=== PATIENT | female | born 1930 | race Caucasian/White ===

== ENCOUNTER 2021-03-02 12:30 | Emergency (ER) | payer MEDICARE ==
[2021-03-02] MEDS ORDERED: Morphine 4 MG/ML Syringe IVPUSH PRN (13:02)
[2021-03-02] MEDS ORDERED: Aspirin 81 MG Tab.Chew PO ONE (13:02)
--- NOTE | 2021-03-02 13:07 | EDM.PDOC ---
<OfficerToby - Last Filed: 03/02/21 17:04> ED HPI GENERAL MEDICAL PROBLEM - General Chief Complaint: Cardiovascular Problem Stated Complaint: SYMPTOMS OF HEARTATTACK Time Seen by Provider: 03/02/21 12:55 Source of Information: Reports: Patient, Family, RN Notes Reviewed History Limitations: Reports: No Limitations - History of Present Illness INITIAL COMMENTS - FREE TEXT/NARRATIVE: 89-year-old female presents emergency department day complaint of chest pressure, she states it started early this morning about 5 hours prior did have some diaphoresis felt a little short of breath was not nauseated. Does have a known history of coronary artery disease with a CABG 13 years ago does have atrial fibrillation and a pacemaker in place she is anticoagulated. Recently moved here from the [place] Chest Pain Score (Numeric/FACES): 3 - Related Data Allergies Allergy/AdvReac Type Severity Reaction Status Date / Time No Known Allergies Allergy Verified 03/02/21 12:47 Home Meds: Home Meds Furosemide 60 mg PO DAILY 03/02/21 [History] Gabapentin [Neurontin] 100 mg PO DAILY 03/02/21 [History] Levothyroxine 75 mcg PO ACBREAKFAST 03/02/21 [History] Metoprolol Succinate 50 mg PO DAILY 03/02/21 [History] Nitroglycerin 0.4 mg SL ASDIRECTED 03/02/21 [History] Potassium Chloride 20 meq PO DAILY 03/02/21 [History] Rosuvastatin Calcium 40 mg PO BEDTIME 03/02/21 [History] Warfarin [Coumadin] 1.5 mg PO DAILY 03/02/21 [History] Warfarin [Coumadin] 2 mg PO DAILY 03/02/21 [History] allopurinoL [Zyloprim] 100 mg PO DAILY 03/02/21 [History] amLODIPine Besylate [Amlodipine Besylate] 10 mg PO DAILY 03/02/21 [History] Past Medical History HEENT History: Reports: Impaired Vision Cardiovascular History: Reports: Afib, CAD, High Cholesterol, Hypertension, [place], Other (See Below) Other Cardiovascular History: chf Genitourinary History: Reports: Other (See Below) Other Genitourinary History: kidney disease 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: Musculoskeletal History: Reports: Fibromyalgia Endocrine/Metabolic History: Reports: Diabetes, Type II, Hypothyroidism Hematologic History: Reports: Anticoagulation Therapy Oncologic (Cancer) History: Reports: Other (See Below) Other Oncologic History: skin cancer spots - Infectious Disease History Infectious Disease History: Reports: Chicken Pox, Measles, Mumps - Past Surgical History Cardiovascular Surgical History: Reports: Carotid Endarterectomy, Coronary Artery Stent GI Surgical History: Reports: Appendectomy Social & Family History - Tobacco Use Tobacco Use Status *Q: Never Tobacco User - Caffeine Use Caffeine Use: Reports: Coffee ED ROS GENERAL - Review of Systems Review Of Systems: See Below Constitutional: Reports: Diaphoresis HEENT: Reports: No Symptoms Respiratory: Reports: Shortness of Breath. Denies: Cough, Sputum Cardiovascular: Reports: Chest Pain GI/Abdominal: Reports: No Symptoms : Reports: No Symptoms Musculoskeletal: Reports: No Symptoms ED EXAM, GENERAL - Physical Exam Exam: See Below Exam Limited By: No Limitations General Appearance: Alert, WD/WN, No Apparent Distress Respiratory/Chest: No Respiratory Distress, Lungs Clear, Normal Breath Sounds, No Accessory Muscle Use, Chest Non-Tender Cardiovascular: No Murmur, Irregularly Irregular GI/Abdominal: Soft, Non-Tender Extremities: No Pedal Edema Course - Re-Assessments/Exams Free Text/Narrative Re-Assessment/Exam: 03/02/21 14:09 Unfortunately due to the current pandemic no beds available contacted [facility] 1343 full at this time [facility] 1345 also full at this time 1350 also full at this time I did call and discussed case with Dr. Victor planning associate on-call [facility] recommended the following treatments no Brilinta at this time hold the warfarin start heparin with bolus and drip when INR falls below 2 nitro for pain continue to monitor troponins 03/02/21 17:04 Called [facility] also on diversion at 1704 Departure - Departure Disposition: Home, Self-Care 01 Clinical Impression: Non-STEMI (non-ST elevated myocardial infarction) Instructions: Heart Attack, [id number] Referrals: Jenna Allen PA-C [Primary Care Provider] - Forms: ED Department Discharge Care Plan Goals: Continue your current medications along with 1 small low-dose 81 mg aspirin daily starting tomorrow morning. You should be hearing from cardiology in the next 24 to 48 hours to discuss a recheck appointment in [place] this week. You can always return to the emergency room if you feel you are worsening such as persistent worsening chest pain or shortness of breath. Sepsis Event Note (ED) - Evaluation Sepsis Screening Result: No Definite Risk <Rico Durant - Last Filed: 03/03/21 17:50> Course - Re-Assessments/Exams Free Text/Narrative Re-Assessment/Exam: 03/03/21 17:50 No chest pain at any time during this shift. Still trying to place her. <Clif Patricia - Last Filed: 03/03/21 22:18> Course - Vital Signs Last Recorded V/S: Last Vital Signs Temp 97.1 F 03/02/21 12:34 Pulse 59 L 03/03/21 19:46 Resp 13 03/03/21 19:46 BP 143/47 H 03/03/21 19:46 Pulse Ox 94 L 03/03/21 19:46 - Orders/Labs/Meds Orders: Active Orders 24 hr Category Date Time Status Chest 1V Frontal [CR] Stat Exams 03/03/21 18:02 Taken Labs: Laboratory Tests 03/02/21 03/02/21 03/02/21 Range/Units 12:40 12:40 12:40 WBC 7.4 (4.5-11.0) K/uL RBC 4.07 (3.30-5.50) M/uL Hgb 14.4 (12.0-15.0) g/dL Hct 41.2 (36.0-48.0) % MCV 101 H (80-98) fL MCH 35 H (27-31) pg MCHC 35 (32-36) % Plt Count 150 (150-400) K/uL Neut % (Auto) 61.5 (36-66) % Lymph % (Auto) 25.1 (24-44) % [place] % (Auto) 11.0 H (2-6) % Eos % (Auto) 1.5 L (2-4) % Baso % (Auto) 0.9 (0-1) % PT 26.1 H (9.5-12.0) sec INR 2.44 H (0.80-1.20) Sodium 138 L (140-148) mmol/L Potassium 3.2 L (3.6-5.2) mmol/L Chloride 99 L (100-108) mmol/L Carbon Dioxide 25 (21-32) mmol/L Anion Gap 17.2 H (5.0-14.0) mmol/L BUN 17 (7-18) mg/dL Creatinine 1.6 H (0.6-1.0) mg/dL Est Cr Clr Drug Dosing 18.34 mL/min Estimated GFR (MDRD) 30 L (>60) Glucose 158 H (74-106) mg/dL Calcium 9.1 (8.5-10.1) mg/dL Total Bilirubin 1.1 H (0.2-1.0) mg/dL AST 44 H (15-37) U/L ALT 26 (12-78) U/L Alkaline Phosphatase 74 (46-116) U/L Troponin I 0.214 H* (0.000-0.056) ng/mL Total Protein 7.1 (6.4-8.2) g/dL Albumin 2.7 L (3.4-5.0) g/dL Globulin 4.4 H (2.3-3.5) g/dL Albumin/Globulin Ratio 0.6 L (1.2-2.2) SARS CoV-2 RNA Rapid SAVANA 03/02/21 03/02/21 03/02/21 Range/Units 14:58 18:40 18:40 WBC (4.5-11.0) K/uL RBC (3.30-5.50) M/uL Hgb (12.0-15.0) g/dL Hct (36.0-48.0) % MCV (80-98) fL MCH (27-31) pg MCHC (32-36) % Plt Count (150-400) K/uL Neut % (Auto) (36-66) % Lymph % (Auto) (24-44) % [place] % (Auto) (2-6) % Eos % (Auto) (2-4) % Baso % (Auto) (0-1) % PT 25.5 H (9.5-12.0) sec INR 2.38 H (0.80-1.20) Sodium (140-148) mmol/L Potassium (3.6-5.2) mmol/L Chloride (100-108) mmol/L Carbon Dioxide (21-32) mmol/L Anion Gap (5.0-14.0) mmol/L BUN (7-18) mg/dL Creatinine (0.6-1.0) mg/dL Est Cr Clr Drug Dosing mL/min Estimated GFR (MDRD) (>60) Glucose (74-106) mg/dL Calcium (8.5-10.1) mg/dL Total Bilirubin (0.2-1.0) mg/dL AST (15-37) U/L ALT (12-78) U/L Alkaline Phosphatase (46-116) U/L Troponin I 4.386 H* (0.000-0.056) ng/mL Total Protein (6.4-8.2) g/dL Albumin (3.4-5.0) g/dL Globulin (2.3-3.5) g/dL Albumin/Globulin Ratio (1.2-2.2) SARS CoV-2 RNA Rapid SAVANA Negative 03/03/21 03/03/21 Range/Units 18:10 18:10 WBC (4.5-11.0) K/uL RBC (3.30-5.50) M/uL Hgb (12.0-15.0) g/dL Hct (36.0-48.0) % MCV (80-98) fL MCH (27-31) pg MCHC (32-36) % Plt Count (150-400) K/uL Neut % (Auto) (36-66) % Lymph % (Auto) (24-44) % [place] % (Auto) (2-6) % Eos % (Auto) (2-4) % Baso % (Auto) (0-1) % PT 22.9 H (9.5-12.0) sec INR 2.13 H (0.80-1.20) Sodium (140-148) mmol/L Potassium (3.6-5.2) mmol/L Chloride (100-108) mmol/L Carbon Dioxide (21-32) mmol/L Anion Gap (5.0-14.0) mmol/L BUN (7-18) mg/dL Creatinine (0.6-1.0) mg/dL Est Cr Clr Drug Dosing mL/min Estimated GFR (MDRD) (>60) Glucose (74-106) mg/dL Calcium (8.5-10.1) mg/dL Total Bilirubin (0.2-1.0) mg/dL AST (15-37) U/L ALT (12-78) U/L Alkaline Phosphatase (46-116) U/L Troponin I 1.934 H* (0.000-0.056) ng/mL Total Protein (6.4-8.2) g/dL Albumin (3.4-5.0) g/dL Globulin (2.3-3.5) g/dL Albumin/Globulin Ratio (1.2-2.2) SARS CoV-2 RNA Rapid SAVANA Meds: Medications Discontinued Medications Generic Name Dose Route Start Last Admin Trade Name Freq PRN Reason Stop Dose Admin Amlodipine Besylate 10 mg 03/03/21 08:17 03/03/21 08:29 Amlodipine 5 Mg Tab PO 03/03/21 08:18 10 mg ONETIME ONE Administration Aspirin 324 mg 03/02/21 13:02 03/02/21 13:11 Aspirin 81 Mg Tab.Chew PO 03/02/21 13:03 324 mg ONETIME ONE Administration Aspirin 81 mg 03/03/21 08:17 03/03/21 08:30 Aspirin 81 Mg Tab.Chew PO 03/03/21 08:18 81 mg ONETIME ONE Administration Aspirin 81 mg 03/03/21 19:57 03/03/21 20:08 Aspirin 81 Mg Tab.Chew PO 03/03/21 19:58 81 mg ONETIME ONE Administration Furosemide 60 mg 03/03/21 08:15 03/03/21 08:32 Furosemide 20 Mg Tab PO 03/03/21 08:16 60 mg ONETIME ONE Administration Nitroglycerin/Dextrose 25 mg in 250 mls @ 3 mls/hr 03/02/21 14:15 03/03/21 19:15 Nitroglycerin 25 Mg/D5w 250 Ml IV 5 mcg/min TITRATE MOY 3 mls/hr Titration Protocol 5 MCG/MIN Levothyroxine Sodium 75 mcg 03/03/21 08:16 03/03/21 08:31 Levothyroxine 25 Mcg Tab PO 03/03/21 08:17 75 mcg ONETIME ONE Administration Lidocaine HCl 5 ml 03/03/21 21:11 03/03/21 21:46 Lidocaine 1% 5 Ml Sdv INJECT 03/03/21 21:12 Not Given ONETIME ONE Metoprolol Succinate 50 mg 03/03/21 08:16 03/03/21 08:31 Metoprolol Succinate 50 Mg Tab.Er PO 03/03/21 08:17 50 mg ONETIME ONE Administration Morphine Sulfate 4 mg 03/02/21 13:02 Morphine 4 Mg/Ml Syringe IVPUSH 03/03/21 13:03 Q10M PRN Chest Pain Potassium Chloride 40 meq 03/03/21 08:15 03/03/21 08:30 Potassium Chloride 20 Meq Tab.Er PO 03/03/21 08:16 40 meq ONETIME ONE Administration Warfarin Sodium 2 mg 03/03/21 08:16 03/03/21 08:30 Warfarin 1 Mg Tab PO 03/03/21 08:17 2 mg ONETIME ONE Administration - Re-Assessments/Exams Free Text/Narrative Re-Assessment/Exam: 03/02/21 23:38 At around 11 PM, the patient started to complain of some twinges of chest discomfort and shortness of breath. These are similar to what she has been having over the past several days to weeks. I called [facility] in [place], this time they were unable to take her even if they went straight to [facility] because there were no ICU beds and had to just completely say they were on diversion and cannot take anyone. I offered the patient to call [facility], but she was feeling better and wanted to wait to see what Ramiro Herrmann said in the morning. We did turn up her nitroglycerin 5 mics per minute. I offered her something else for pain and she declined. Free Text/Narrative Re-Assessment/Exam: 03/03/21 18:16 Return from his 7 PM shift and this patient is still here. Apparently she is on some "waiting list" with several hospitals. She has remained mostly asymptomatic today. I am going to check a 1 view chest x-ray, repeat her troponin and INR to follow progress. 03/03/21 22:16 1 view chest x-ray looks stable, her repeat troponin is actually down to 1.9, and INR is 2.1. IV nitroglycerin was stopped and she remained asymptomatic. I had a long discussion with the family and with her planning associate, he agreed that outpatient follow-up would be adequate with her doing so well and with her troponin only going to 4 and coming down. She was given 81 mg of aspirin, and was encouraged to continue 1 dose daily and her planning associate will call her tomorrow. As the patient was being discharged, she became very anxious and needed some Ativan to calm down, she was given ten 1 mg doses to split and take 0.5 up to twice daily for the next few days. Departure - Departure Time of Disposition: 22:01 Sepsis Event Note (ED) - Focused Exam Vital Signs: Vital Signs Pulse Resp BP Pulse Ox 03/03/21 19:46 59 L 13 143/47 H 94 L 03/03/21 18:27 57 L 14 127/79 94 L 03/03/21 17:14 56 L 10 L 126/48 L 91 L 03/03/21 17:12 70 14 126/68 93 L 03/03/21 15:56 59 L 15 139/51 L 90 L 03/03/21 13:59 61 14 127/47 L 93 L 03/03/21 12:59 60 20 130/42 L 90 L 03/03/21 11:29 62 15 121/34 L 92 L 03/03/21 10:30 62 14 127/58 L 93 L - My Orders Last 24 Hours: My Active Orders 03/03/21 18:02 Chest 1V Frontal [CR] Stat - Assessment/Plan Last 24 Hours: My Active Orders 03/03/21 18:02 Chest 1V Frontal [CR] Stat
--- NOTE | 2021-03-02 13:51 | CR ---
CHEST: Portable 03/02/2021 at 1:24 PM CLINICAL HISTORY:Chest pain COMPARISON:2007 FINDINGS: Patient has had previous sternotomy. There is a permanent cardiac pacer. Heart is mildly enlarged. Pulmonary vascularity is normal. No infiltrates are seen. There are atherosclerotic changes in the aorta. Impression: Mild cardiomegaly No acute cardiac pulmonary process
[2021-03-02] MEDS ORDERED: Nitroglycerin/D5W 25 MG/250 ML BOTTLE IV SCH (14:15)
[2021-03-03] MEDS ORDERED: Furosemide 20 MG Tab PO ONE (08:15)
[2021-03-03] MEDS ORDERED: Potassium Chloride 20 MEQ Tab.ER PO ONE (08:15)
[2021-03-03] MEDS ORDERED: Metoprolol Succinate 50 MG Tab.ER PO ONE (08:16)
[2021-03-03] MEDS ORDERED: Levothyroxine 25 MCG Tab PO ONE (08:16)
[2021-03-03] MEDS ORDERED: amLODIPine 5 MG Tab PO ONE (08:17)
[2021-03-03] MEDS ORDERED: Aspirin 81 MG Tab.Chew PO ONE ×2 (08:17→19:57)
--- NOTE | 2021-03-04 08:54 | CR ---
CHEST: Portable 03/03/2021 at 6:26 PM CLINICAL HISTORY:VT COMPARISON:03/02/2021 FINDINGS: Heart is mildly enlarged pulmonary vascularity is mildly cephalized. There is some patchy infiltrate in the right infrahilar region. There is density in the left infrahilar region which is similar to prior study may be scarring or atelectasis. IMPRESSION: Mild vascular cephalization may represent some pulmonary venous hypertension Patchy right lower lobe infiltrate Scarring and fibrosis in the left infrahilar region
== END 2021-03-03 22:05 | disposition home or self-care (01) ==
LOC: JP.ED 12:30
DX: I21.4 Non-ST elevation (NSTEMI) myocardial infarction (principal); I48.91 Unspecified atrial fibrillation; I11.0 Hypertensive heart disease with heart failure; I50.9 Heart failure, unspecified; I25.10 Atherosclerotic heart disease of native coronary artery without angina pectoris; I25.2 Old myocardial infarction; E78.00 Pure hypercholesterolemia, unspecified; E11.9 Type 2 diabetes mellitus without complications; E03.9 Hypothyroidism, unspecified; Z79.01 Long term (current) use of anticoagulants; Z79.899 Other long term (current) drug therapy; Z20.822 Contact with and (suspected) exposure to COVID-19
CPT/HCPCS: 36415; 71045; 80053; 84484; 85025; 85610; 93005; 96365; 96366; 99285; A9270; J3490; U0002

== ENCOUNTER 2021-03-04 17:56 | Emergency (ER) | payer MEDICARE ==
[2021-03-04] MEDS ORDERED: Furosemide 40 MG/4 ML VIAL IVPUSH ONE (18:01)
--- NOTE | 2021-03-04 18:03 | EDM.PDOC ---
ED HPI GENERAL MEDICAL PROBLEM - General Stated Complaint: MEDICAL VIA [facility] Time Seen by Provider: 03/04/21 18:02 Source of Information: Reports: Patient, EMS History Limitations: Reports: Physical Impairment, Respiratory Distress - History of Present Illness INITIAL COMMENTS - FREE TEXT/NARRATIVE: 89-year-old female who was discharged from the hospital yesterday after spending 48 hours in the emergency room waiting for placement to treat and work-up an MN. A chest x-ray done prior to discharge yesterday evening did not show significant congestive failure and her troponin had been falling so she was set up to see her utility porter as an outpatient in the next few days. She was encouraged to restart her diuretics and other medications. Unfortunately she became more short of breath after getting home, and did not take any of her regular medications. Her family checked on her this afternoon and she was short of breath so they called the ambulance, when EMS arrived she was using accessory muscles, O2 saturations in the upper 70s to low 80s and having difficulty speaking words in full sentences. Nonrebreather oxygen was applied and she was brought in urgently. Her EKG still shows ventricular paced rhythm. Pulse is 65, O2 sats are better now with the oxygen at 93%. She has been having chest pain all day, sublingual nitroglycerin given by EMS helped somewhat. Onset: Gradual Duration: Hour(s): (Shortness of breath is worsened over the past 24 hours) Location: Reports: Chest (Chest pressure is more persistent) Associated Symptoms: Reports: Chest Pain, Malaise, Shortness of Breath, Weakness, Other (Patient is very weak). Denies: Cough, Fever/Chills, Headaches, Nausea/Vomiting Middle Back Pain Score (Numeric/FACES): 6 - Related Data Allergies Allergy/AdvReac Type Severity Reaction Status Date / Time No Known Allergies Allergy Verified 03/02/21 12:47 Home Meds: Home Meds Furosemide 60 mg PO DAILY 03/02/21 [History] Gabapentin [Neurontin] 100 mg PO DAILY 03/02/21 [History] Levothyroxine 75 mcg PO ACBREAKFAST 03/02/21 [History] Metoprolol Succinate 50 mg PO DAILY 03/02/21 [History] Nitroglycerin 0.4 mg SL ASDIRECTED 03/02/21 [History] Potassium Chloride 20 meq PO DAILY 03/02/21 [History] Rosuvastatin Calcium 40 mg PO BEDTIME 03/02/21 [History] Warfarin [Coumadin] 1.5 mg PO DAILY 03/02/21 [History] Warfarin [Coumadin] 2 mg PO DAILY 03/02/21 [History] allopurinoL [Zyloprim] 100 mg PO DAILY 03/02/21 [History] amLODIPine Besylate [Amlodipine Besylate] 10 mg PO DAILY 03/02/21 [History] Past Medical History HEENT History: Reports: Impaired Vision Cardiovascular History: Reports: Afib, CAD, High Cholesterol, Hypertension, [place], Other (See Below) Other Cardiovascular History: chf Genitourinary History: Reports: Other (See Below) Other Genitourinary History: kidney disease [employer]ER History: Reports: Musculoskeletal History: Reports: Fibromyalgia Endocrine/Metabolic History: Reports: Diabetes, Type II, Hypothyroidism Hematologic History: Reports: Anticoagulation Therapy Oncologic (Cancer) History: Reports: Other (See Below) Other Oncologic History: skin cancer spots - Infectious Disease History Infectious Disease History: Reports: Chicken Pox, Measles, Mumps - Past Surgical History Cardiovascular Surgical History: Reports: Carotid Endarterectomy, Coronary Artery Stent GI Surgical History: Reports: Appendectomy Social & Family History - Caffeine Use Caffeine Use: Reports: Coffee ED ROS GENERAL - Review of Systems Review Of Systems: See Below Constitutional: Reports: Malaise, Decreased Appetite. Denies: Fever, Chills HEENT: Denies: Vision Change Respiratory: Reports: Shortness of Breath, Cough. Denies: Sputum Cardiovascular: Reports: Chest Pain. Denies: Edema, Palpitations GI/Abdominal: Denies: Abdominal Pain, Nausea, Vomiting Skin: Reports: Pallor Neurological: Reports: Weakness Psychiatric: Reports: No Symptoms ED EXAM, GENERAL - Physical Exam Exam: See Below Exam Limited By: Respiratory Distress General Appearance: Alert, Moderate Distress Eye Exam: Bilateral Eye: Normal Inspection Throat/Mouth: Normal Inspection Head: Atraumatic Neck: Supple Respiratory/Chest: Other (Diffuse expiratory wheezes are heard bilaterally with some decreased breath sounds in the bases but no rales or rhonchi) Cardiovascular: Regular Rate, Rhythm GI/Abdominal: Soft, Non-Tender Extremities: No: Pedal Edema Neurological: Alert, Oriented, Other (No asymmetric weakness) Psychiatric: Flat Affect Skin Exam: Warm, Dry #1 Interpretation EKG Date: 03/04/21 EKG Interpretation Comments: Ventricular paced rhythm at a rate of 65, similar to previous EKGs Course - Vital Signs Last Recorded V/S: Last Vital Signs Temp 95.8 F L 03/04/21 18:24 Pulse 59 L 03/04/21 20:24 Resp 25 H 03/04/21 20:24 BP 159/73 H 03/04/21 20:24 Pulse Ox 93 L 03/04/21 20:24 - Orders/Labs/Meds Orders: Active Orders 24 hr Category Date Time Status Chavira Catheter Insertion [Insert Urinary Catheter] [OM. Care 03/04/21 18:30 Ordered PC] Q24H Chest 1V Frontal [CR] Stat Exams 03/04/21 18:01 Taken EKG 12 Lead [EK] Routine Ther 03/04/21 18:00 Ordered Labs: Laboratory Tests 03/04/21 03/04/21 03/04/21 Range/Units 18:10 18:13 18:13 WBC 11.6 H (4.5-11.0) K/uL RBC 3.82 (3.30-5.50) M/uL Hgb 13.6 (12.0-15.0) g/dL Hct 39.6 (36.0-48.0) % MCV 104 H (80-98) fL MCH 36 H (27-31) pg MCHC 34 (32-36) % Plt Count 133 L (150-400) K/uL Neut % (Auto) 72.4 H (36-66) % Lymph % (Auto) 17.8 L (24-44) % [place] % (Auto) 9.1 H (2-6) % Eos % (Auto) 0.1 L (2-4) % Baso % (Auto) 0.6 (0-1) % PT 23.3 H (9.5-12.0) sec INR 2.17 H (0.80-1.20) Sodium 134 L (140-148) mmol/L Potassium 3.8 (3.6-5.2) mmol/L Chloride 98 L (100-108) mmol/L Carbon Dioxide 20 L (21-32) mmol/L Anion Gap 19.8 H (5.0-14.0) mmol/L BUN 20 H (7-18) mg/dL Creatinine 1.8 H (0.6-1.0) mg/dL Est Cr Clr Drug Dosing 18.65 mL/min Estimated GFR (MDRD) 27 L (>60) Glucose 271 H (74-106) mg/dL Calcium 9.3 (8.5-10.1) mg/dL Total Bilirubin 2.4 H D (0.2-1.0) mg/dL AST 40 H (15-37) U/L ALT 27 (12-78) U/L Alkaline Phosphatase 68 (46-116) U/L Troponin I 0.613 H* (0.000-0.056) ng/mL Total Protein 6.8 (6.4-8.2) g/dL Albumin 2.6 L (3.4-5.0) g/dL Globulin 4.2 H (2.3-3.5) g/dL Albumin/Globulin Ratio 0.6 L (1.2-2.2) SARS CoV-2 RNA Rapid SAVANA 03/04/21 Range/Units 18:40 WBC (4.5-11.0) K/uL RBC (3.30-5.50) M/uL Hgb (12.0-15.0) g/dL Hct (36.0-48.0) % MCV (80-98) fL MCH (27-31) pg MCHC (32-36) % Plt Count (150-400) K/uL Neut % (Auto) (36-66) % Lymph % (Auto) (24-44) % [place] % (Auto) (2-6) % Eos % (Auto) (2-4) % Baso % (Auto) (0-1) % PT (9.5-12.0) sec INR (0.80-1.20) Sodium (140-148) mmol/L Potassium (3.6-5.2) mmol/L Chloride (100-108) mmol/L Carbon Dioxide (21-32) mmol/L Anion Gap (5.0-14.0) mmol/L BUN (7-18) mg/dL Creatinine (0.6-1.0) mg/dL Est Cr Clr Drug Dosing mL/min Estimated GFR (MDRD) (>60) Glucose (74-106) mg/dL Calcium (8.5-10.1) mg/dL Total Bilirubin (0.2-1.0) mg/dL AST (15-37) U/L ALT (12-78) U/L Alkaline Phosphatase (46-116) U/L Troponin I (0.000-0.056) ng/mL Total Protein (6.4-8.2) g/dL Albumin (3.4-5.0) g/dL Globulin (2.3-3.5) g/dL Albumin/Globulin Ratio (1.2-2.2) SARS CoV-2 RNA Rapid SAVANA Negative Meds: Medications Discontinued Medications Generic Name Dose Route Start Last Admin Trade Name Freq PRN Reason Stop Dose Admin Albuterol/Ipratropium 3 ml 03/04/21 18:04 03/04/21 18:22 Albuterol/Ipratropium 3.0-0.5 Mg/3 Ml Neb Soln NEB 03/04/21 18:05 3 ml ONETIME ONE Administration Furosemide 40 mg 03/04/21 18:01 03/04/21 18:08 Furosemide 40 Mg/4 Ml Vial IVPUSH 03/04/21 18:02 40 mg ONETIME ONE Administration Nitroglycerin/Dextrose 25 mg in 250 mls @ 6 mls/hr 03/04/21 18:15 03/04/21 18:44 Nitroglycerin 25 Mg/D5w 250 Ml IV 20 mcg/min TITRATE MOY 12 mls/hr Titration Protocol 10 MCG/MIN Phytonadione 1 mg/ Sodium 50.5 mls @ 100 mls/hr 03/04/21 18:40 03/04/21 18:59 Chloride IV 03/04/21 19:10 100 mls/hr ONETIME ONE Administration - Re-Assessments/Exams Free Text/Narrative Re-Assessment/Exam: 03/04/21 18:46 Chest x-ray now shows congestive heart failure. Patient was started on sublingual nitroglycerin 10 mcg/min and will be titrated upward, also given 40 mg of IV Lasix. CBC, CMP, troponin, INR Covid test were obtained and cardiology in [place] was consulted and they are agreeable to take the patient when stable. 03/04/21 19:27 Chest x-ray now shows congestive failure, troponin is actually still falling at 0.6. Nitroglycerin was titrated up to 20 mcg/min and the patient continued to improve. [place] kindly accepted the patient for transfer. 03/04/21 19:41 Patient was also given a DuoNeb, continued to improve and is now on 94% O2 saturation with 4 L of nasal cannula. Her breathing is much less labored. BiPAP was recommended by the accepting physician in [place] but she is improving fairly rapidly and is very anxious and I do not think she will tolerate BiPAP at this time. Kidney function has worsened slightly, her creatinine is now 1.8 and GFR 27. She was given 1 mg of vitamin K when her INR returned 2.17, this was at the request of the utility porter in [place] to prepare her for study later. Departure - Departure Time of Disposition: 20:35 Disposition: DC/Tfer to [facility] 02 Clinical Impression: NSTEMI (non-ST elevated myocardial infarction) Congestive heart failure Qualifiers: Heart failure type: combined systolic and diastolic Heart failure chronicity: acute on chronic Qualified Code(s): I50.43 - Acute on chronic combined systolic (congestive) and diastolic (congestive) heart failure - Discharge Information Referrals: Jenna Allen PA-C [Primary Care Provider] - Forms: ED Department Discharge Care Plan Goals: Patient was transferred by EMS to [facility] for further cardiology evaluation and stabilization with anticipated angiogram in the next day or 2. Sepsis Event Note (ED) - Focused Exam Vital Signs: Vital Signs Temp Pulse Resp BP Pulse Ox 03/04/21 20:24 59 L 25 H 159/73 H 93 L 03/04/21 19:42 60 35 H 150/73 H 94 L 03/04/21 19:14 60 30 H 135/61 95 03/04/21 19:03 60 26 H 151/71 H 96 03/04/21 18:35 61 30 H 148/66 H 89 L 03/04/21 18:24 95.8 F L 63 17 182/73 H 95 - My Orders Last 24 Hours: My Active Orders 03/04/21 18:00 EKG 12 Lead [EK] Routine 03/04/21 18:01 Chest 1V Frontal [CR] Stat 03/04/21 18:30 Chavira Catheter Insertion [Insert Urinary Catheter] [OM.PC] Q24H - Assessment/Plan Last 24 Hours: My Active Orders 03/04/21 18:00 EKG 12 Lead [EK] Routine 03/04/21 18:01 Chest 1V Frontal [CR] Stat 03/04/21 18:30 Chavira Catheter Insertion [Insert Urinary Catheter] [OM.PC] Q24H
[2021-03-04] MEDS ORDERED: Albuterol/Ipratropium 3.0-0.5 MG/3 ML Neb Soln NEB ONE (18:04)
[2021-03-04] MEDS ORDERED: Nitroglycerin/D5W 25 MG/250 ML BOTTLE IV SCH (18:15)
[2021-03-04] MEDS ORDERED: Phytonadione 1 MG in Sodium Chloride 0.9% 50 ML IV ONE (18:40)
--- NOTE | 2021-03-05 08:56 | CR ---
CHEST: Portable 03/04/2021 at 6:31 PM CLINICAL HISTORY:SOB, chest pressure COMPARISON:03/03/2021 FINDINGS: There are increasing perihilar and lower lobe infiltrates. There is a right pleural effusion. Impression: Increasing bilateral pulmonary infiltrates. This could represent diffuse pneumonia but is most likely pulmonary edema from CHF Small right effusion.
== END 2021-03-04 20:45 ==
LOC: JP.ED 17:56
DX: I21.4 Non-ST elevation (NSTEMI) myocardial infarction (principal); I11.0 Hypertensive heart disease with heart failure; I50.43 Acute on chronic combined systolic (congestive) and diastolic (congestive) heart failure; I48.91 Unspecified atrial fibrillation; I25.10 Atherosclerotic heart disease of native coronary artery without angina pectoris; E78.00 Pure hypercholesterolemia, unspecified; I25.2 Old myocardial infarction; E11.9 Type 2 diabetes mellitus without complications; E03.9 Hypothyroidism, unspecified; Z79.01 Long term (current) use of anticoagulants; Z79.899 Other long term (current) drug therapy; Z20.822 Contact with and (suspected) exposure to COVID-19
CPT/HCPCS: 36415; 51702; 71045; 80053; 84484; 85025; 85610; 93005; 96365; 96366; 96368; 96375; 99285; J1940; J3430; J3490; U0002; J7620-GY

== ENCOUNTER 2021-06-11 10:30 | Emergency (ER) | payer MEDICARE, MEDICAID ==
--- NOTE | 2021-06-11 11:32 | CR ---
CHEST: Portable 06/11/2021 at 11:10 AM CLINICAL HISTORY:SOB COMPARISON:03/04/2021 FINDINGS: Heart is enlarged. Pulmonary vascular is normal. Patient has had previous sternotomy. There is a permanent cardiac pacer. There are atherosclerotic changes in the aorta.. There are diffuse bilateral infiltrates right greater than left. There is some interstitial prominence. No effusions are seen IMPRESSION: Diffuse bilateral infiltrate right greater than left. There is also some generalized interstitial prominence similar which may be chronic. Findings may represent pneumonitis. Pulmonary edema from CHF is not excluded
--- NOTE | 2021-06-11 11:46 | EDM.PDOC ---
ED HPI GENERAL MEDICAL PROBLEM - General Chief Complaint: Cardiovascular Problem Stated Complaint: [facility] Time Seen by Provider: 06/11/21 11:39 Source of Information: Reports: Patient, EMS History Limitations: Reports: No Limitations - History of Present Illness INITIAL COMMENTS - FREE TEXT/NARRATIVE: pt has been weak and fatiqued for the past 2-3 days, She has not had a fever. She has a history of 2 stents recently placed. She is on her third pacemaker. She is complaining odf a tender chest and some pain in the shoulder blades. her ekg is mainly paced with a left bumdle branch block.Pt did take 3 baby asa at home prior to arrival. Onset: Gradual, Other (she has not felt well for the past 2-3 days. ) Duration: Hour(s): Location: Reports: Chest, Back, Other (pt is sob. ) Associated Symptoms: Reports: Chest Pain, Shortness of Breath, Weakness - Related Data Allergies Allergy/AdvReac Type Severity Reaction Status Date / Time No Known Allergies Allergy Verified 06/11/21 11:29 Home Meds: Home Meds Furosemide 40 mg PO DAILY 03/02/21 [History] Gabapentin [Neurontin] 100 mg PO DAILY 03/02/21 [History] Levothyroxine 75 mcg PO ACBREAKFAST 03/02/21 [History] Metoprolol Succinate 50 mg PO DAILY 03/02/21 [History] Nitroglycerin 0.4 mg SL ASDIRECTED 03/02/21 [History] Rosuvastatin Calcium 40 mg PO BEDTIME 03/02/21 [History] Warfarin [Coumadin] 1.5 mg PO DAILY 03/02/21 [History] Warfarin [Coumadin] 2 mg PO DAILY 03/02/21 [History] allopurinoL [Zyloprim] 100 mg PO DAILY 03/02/21 [History] amLODIPine Besylate [Amlodipine Besylate] 10 mg PO DAILY 03/02/21 [History] Past Medical History HEENT History: Reports: Impaired Vision Cardiovascular History: Reports: Afib, CAD, High Cholesterol, Hypertension, [place], Other (See Below) Other Cardiovascular History: chf Genitourinary History: Reports: Other (See Below) Other Genitourinary History: kidney disease [employer] History: Reports: Musculoskeletal History: Reports: Fibromyalgia Endocrine/Metabolic History: Reports: Diabetes, Type II, Hypothyroidism Hematologic History: Reports: Anticoagulation Therapy Oncologic (Cancer) History: Reports: Other (See Below) Other Oncologic History: skin cancer spots - Infectious Disease History Infectious Disease History: Reports: Chicken Pox, Measles, Mumps - Past Surgical History Cardiovascular Surgical History: Reports: Carotid Endarterectomy, Coronary Artery Stent GI Surgical History: Reports: Appendectomy Social & Family History - Caffeine Use Caffeine Use: Reports: Coffee ED ROS GENERAL - Review of Systems Review Of Systems: See Below Constitutional: Reports: Weakness, Fatigue HEENT: Reports: No Symptoms Respiratory: Reports: Shortness of Breath Cardiovascular: Reports: Other ( chest tenderness She has also had some aching in her shoulder blades. She has felt mildly sob. ) Endocrine: Reports: No Symptoms GI/Abdominal: Reports: No Symptoms Musculoskeletal: Reports: No Symptoms Skin: Reports: No Symptoms Neurological: Reports: No Symptoms Psychiatric: Reports: Anxiety ED EXAM, GENERAL - Physical Exam Exam: See Below Free Text/Narrative:: pt is a pale appearing pt whos has some chest discomfort and psin by her shoulder blades. She has a long cardiac history with open heart and recent stent. She has some valvular heart problems. She has had 3 pacemakers. She has been more sob and she has had the unusual chest discomfort. Exam Limited By: No Limitations General Appearance: Alert, Anxious, Mild Distress, Other (mild sob. pupils are equal and reactive. ) Ears: Normal TMs Nose: Normal Inspection Throat/Mouth: Normal Inspection Head: Atraumatic Neck: Normal Inspection, Other ( tender to palpate over lower cervcal area. ) Respiratory/Chest: Rales, Other (pt is tender to palpate over the left chest. She did have stents down just recently) Cardiovascular: Regular Rate, Rhythm, Other ( ekg shows a paced rhythm) GI/Abdominal: Soft, Non-Tender (Female) Exam: Deferred Rectal (Female) Exam: Deferred Back Exam: Normal Inspection Extremities: Other ( very slight edema) Neurological: Alert, Oriented, Normal Cognition Psychiatric: Anxious #1 Interpretation Rhythm: A-Flutter EKG Interpretation Comments: pt has a controlled rhythm and has a left bundle. Course - Vital Signs Last Recorded V/S: Last Vital Signs Temp 36.1 C 06/11/21 16:15 Pulse 60 06/11/21 16:15 Resp 14 06/11/21 16:15 BP 96/52 L 06/11/21 16:15 Pulse Ox 91 L 06/11/21 16:15 - Orders/Labs/Meds Labs: Laboratory Tests 06/11/21 06/11/21 06/11/21 Range/Units 11:05 11:05 11:05 WBC 12.3 H (4.5-11.0) K/uL RBC 3.91 (3.30-5.50) M/uL Hgb 13.4 (12.0-15.0) g/dL Hct 39.9 (36.0-48.0) % MCV 102 H (80-98) fL MCH 34 H (27-31) pg MCHC 34 (32-36) % Plt Count 125 L (150-400) K/uL Neut % (Auto) 80.0 H (36-66) % Lymph % (Auto) 11.6 L (24-44) % [place] % (Auto) 7.9 H (2-6) % Eos % (Auto) 0.2 L (2-4) % Baso % (Auto) 0.3 (0-1) % PT (9.2-10.6) sec INR Sodium (140-148) mmol/L Potassium (3.6-5.2) mmol/L Chloride (100-108) mmol/L Carbon Dioxide (21-32) mmol/L Anion Gap (5.0-14.0) mmol/L BUN (7-18) mg/dL Creatinine (0.6-1.0) mg/dL Est Cr Clr Drug Dosing mL/min Estimated GFR (MDRD) (>60) BUN/Creatinine Ratio Glucose (74-106) mg/dL Calcium (8.5-10.1) mg/dL Total Bilirubin (0.2-1.0) mg/dL AST (15-37) U/L ALT (12-78) U/L Alkaline Phosphatase (46-116) U/L POC Troponin I 1.03 H* (0.00-0.08) NT-Pro-B Natriuret Pep 5147 H (5-450) pg/mL Total Protein (6.4-8.2) g/dL Albumin (3.4-5.0) g/dL Globulin (2.3-3.5) g/dL Albumin/Globulin Ratio (1.2-2.2) Influenza Type A RNA (NEGATIVE) RSV RNA (INAAT) (NEGATIVE) Influenza Type B RNA (NEGATIVE) SARS-CoV-2 RNA (SAVANA) (NEGATIVE) 06/11/21 06/11/21 06/11/21 Range/Units 11:47 13:05 14:09 WBC (4.5-11.0) K/uL RBC (3.30-5.50) M/uL Hgb (12.0-15.0) g/dL Hct (36.0-48.0) % MCV (80-98) fL MCH (27-31) pg MCHC (32-36) % Plt Count (150-400) K/uL Neut % (Auto) (36-66) % Lymph % (Auto) (24-44) % [place] % (Auto) (2-6) % Eos % (Auto) (2-4) % Baso % (Auto) (0-1) % PT 20.0 H (9.2-10.6) sec INR 2.0 Sodium (140-148) mmol/L Potassium (3.6-5.2) mmol/L Chloride (100-108) mmol/L Carbon Dioxide (21-32) mmol/L Anion Gap (5.0-14.0) mmol/L BUN (7-18) mg/dL Creatinine (0.6-1.0) mg/dL Est Cr Clr Drug Dosing mL/min Estimated GFR (MDRD) (>60) BUN/Creatinine Ratio Glucose (74-106) mg/dL Calcium (8.5-10.1) mg/dL Total Bilirubin (0.2-1.0) mg/dL AST (15-37) U/L ALT (12-78) U/L Alkaline Phosphatase (46-116) U/L POC Troponin I 1.19 H* (0.00-0.08) NT-Pro-B Natriuret Pep (5-450) pg/mL Total Protein (6.4-8.2) g/dL Albumin (3.4-5.0) g/dL Globulin (2.3-3.5) g/dL Albumin/Globulin Ratio (1.2-2.2) Influenza Type A RNA Negative (NEGATIVE) RSV RNA (INAAT) Negative (NEGATIVE) Influenza Type B RNA Negative (NEGATIVE) SARS-CoV-2 RNA (SAVANA) Negative (NEGATIVE) Meds: Medications Discontinued Medications Generic Name Dose Route Start Last Admin Trade Name Freq PRN Reason Stop Dose Admin Acetaminophen 650 mg 06/11/21 14:08 06/11/21 14:28 Acetaminophen 325 Mg Tab PO 06/11/21 14:09 650 mg NOW ONE Administration Acetaminophen 650 mg 06/11/21 17:06 06/11/21 17:12 Acetaminophen 325 Mg Tab PO 06/11/21 17:07 650 mg NOW ONE Administration Furosemide 40 mg 06/11/21 11:46 06/11/21 12:12 Furosemide 40 Mg/4 Ml Vial IVPUSH 06/11/21 11:47 40 mg ONETIME ONE Administration Furosemide 20 mg 06/11/21 14:09 06/11/21 14:29 Furosemide 20 Mg/2 Ml Vial IVPUSH 06/11/21 14:10 20 mg ONETIME ONE Administration Hydromorphone HCl 0.25 mg 06/11/21 14:15 06/11/21 14:32 Hydromorphone 0.5 Mg/0.5 Ml Syringe IVPUSH 06/11/21 14:16 0.25 mg ONETIME ONE Administration Sodium Chloride 10 ml 06/11/21 10:55 06/11/21 14:35 Sodium Chloride 0.9% 10 Ml Syringe FLUSH 10 ml ASDIRECTED PRN Administration Keep Vein Open - Re-Assessments/Exams Free Text/Narrative Re-Assessment/Exam: 06/11/21 14:16 pt has a mild elevation in trop and arepeat did go up slightly. She has a very low gfr. She had a chest xray which shows bilateral infiltrates looks like fluid overload. Ekg shows a paced rhythm with a left bundl;e. Pt was given 60 mg of lasix which did not bring about a diuresis. 06/18/21 08:16 Departure - Departure Time of Disposition: 17:35 Disposition: DC/Tfer to Acute Hospital 02 Reason for Transfer *Q: Primary PCI Indicated Condition: Fair Clinical Impression: Elevated troponin, History of permanent cardiac pacemaker placement, Renal insufficiency CHF (congestive heart failure) Qualifiers: Heart failure type: combined systolic and diastolic Heart failure chronicity: acute on chronic Qualified Code(s): I50.43 - Acute on chronic combined systolic (congestive) and diastolic (congestive) heart failure Referrals: PCP,None [Primary Care Provider] - Forms: ED Department Discharge Care Plan Goals: transfer to [facility].
[2021-06-11] MEDS: Furosemide 40 MG/4 ML VIAL IVPUSH ONE (12:12)
[2021-06-11] MEDS: Acetaminophen 325 MG Tab PO ONE ×2 (14:28→17:12)
[2021-06-11] MEDS: Furosemide 20 MG/2 ML VIAL IVPUSH ONE (14:29)
[2021-06-11] MEDS: HYDROmorphone 0.5 MG/0.5 ML Syringe IVPUSH ONE (14:32)
[2021-06-11] MEDS: Sodium Chloride 0.9% 10 ML Syringe FLUSH PRN (14:35)
[2021-06-11 14:50] LABS: CORONAVIRUS COVID-19 NAA NEGATIVE (NEGATIVE)
== END 2021-06-11 17:30 ==
LOC: JP.ED 10:30
DX: I11.0 Hypertensive heart disease with heart failure (principal); I50.43 Acute on chronic combined systolic (congestive) and diastolic (congestive) heart failure; N28.9 Disorder of kidney and ureter, unspecified; R79.89 Other specified abnormal findings of blood chemistry; I25.10 Atherosclerotic heart disease of native coronary artery without angina pectoris; E78.00 Pure hypercholesterolemia, unspecified; I25.2 Old myocardial infarction; E11.9 Type 2 diabetes mellitus without complications; E03.9 Hypothyroidism, unspecified; Z79.899 Other long term (current) drug therapy; Z79.01 Long term (current) use of anticoagulants; Z95.0 Presence of cardiac pacemaker; Z20.822 Contact with and (suspected) exposure to COVID-19
CPT/HCPCS: 0241U; 36415; 71045; 71045-26; 80053; 83880; 84484; 85025; 85610; 93005; 96374; 96375; 96376; 99285-25; A9270-GY; J1170; J1940